=== PATIENT | female | born 1975 | race American Indian/Alaskan Native ===

== ENCOUNTER 2017-05-02 11:47 | Emergency (ER) | payer OTHER ==
[2017-05-02 12:33] LABS: Basophils % (Auto) 0.6 % (0.0-1.8); Hematocrit 38.9 % (30.3-42.9); Hemoglobin 12.1 gm/dl (10.1-14.3); Mean Corpuscular HGB Conc 31 % (30-34); Mean Corpuscular Volume 76 fl (79-97); Platelet Count 251 K/mm3 (140-440); Red Blood Count 5.13 M/mm3 (3.65-5.03); Red Cell Distribution Width 14.5 % (13.2-15.2)
[2017-05-02 13:03] LABS: Mean Corpuscular Hemoglobin 24 pg (28-32)
[2017-05-02 13:17] LABS: Anion Gap 18 mmol/L; BUN/Creatinine Ratio 15; Blood Urea Nitrogen 9 mg/dL (7-17); Calcium 8.6 mg/dL (8.4-10.2); Carbon Dioxide 24 mmol/L (22-30); Chloride 103.6 mmol/L (98-107); Glucose 96 mg/dL (65-100); Potassium 3.9 mmol/L (3.6-5.0); Sodium 142 mmol/L (137-145)
--- NOTE | 2017-05-02 16:42 | Emergency Department Report ---
HPI - General Chief Complaint: Extremity Injury, Lower Time Seen by Provider: 05/02/17 16:24 - HPI HPI: This is a 42-year-old female presents to the emergency department from home, sent in by her PCP for a lower extremity Doppler, after having left calf pain and some swelling for the past 2 days. She says she was walking and felt "2 pops." She has been taking some IbuProfen and Tylenol and the primary care physician gave her some type of medicated bandage. She also has a referral to follow up with an orthopedist. She denies any other past medical history. No recent travel or sick contacts at home. She is able to ambulate without any instability. ED Past Medical Hx - Past Medical History Previous Medical History?: No - Surgical History Past Surgical History?: Yes Additional Surgical History: Etopic - Social History Smoking Status: Never Smoker Substance Use Type: Alcohol ED Review of Systems ROS: Stated complaint: POSS DVT Other details as noted in HPI Comment: All other systems reviewed and negative Constitutional: denies: chills, fever Eyes: denies: eye pain, eye discharge, vision change ENT: denies: ear pain, throat pain Respiratory: denies: cough, shortness of breath, wheezing Cardiovascular: denies: chest pain, palpitations Gastrointestinal: denies: abdominal pain, nausea, diarrhea Genitourinary: denies: urgency, dysuria, discharge Musculoskeletal: myalgia. denies: back pain Skin: denies: rash, lesions Neurological: denies: headache, weakness, paresthesias Physical Exam - Physical Exam Vital Signs: Vital Signs 05/02/17 05/02/17 05/02/17 11:57 13:49 14:34 Temperature 98.5 F 98.8 F Pulse Rate 70 68 Respiratory 16 18 18 Rate Blood Pressure 131/81 Blood Pressure 136/77 [Right] O2 Sat by Pulse 100 100 Oximetry Physical Exam: GENERAL: The patient is well-developed well-nourished. HENT: Normocephalic. Atraumatic. Patient has moist mucous membranes. EYES: Extraocular motions are intact. Pupils equal reactive to light bilaterally. NECK: Supple. Trachea is midline. CHEST/LUNGS: Clear to auscultation. There is no respiratory distress noted. HEART/CARDIOVASCULAR: Regular. There is no tachycardia. There is no murmur. ABDOMEN: Abdomen is soft, nontender. Patient has normal bowel sounds. There is no abdominal distention. SKIN: Skin is warm and dry. There is no appreciable edema to the left calf when compared to the right. NEURO: The patient is awake, alert, and oriented. The patient is cooperative. The patient has no focal neurologic deficits. The patient has normal speech. MUSCULOSKELETAL: There is some tenderness to palpation to the left calf but no obvious deformity. There is no limitation range of motion. ED Course Vital Signs 05/02/17 05/02/17 05/02/17 11:57 13:49 14:34 Temperature 98.5 F 98.8 F Pulse Rate 70 68 Respiratory 16 18 18 Rate Blood Pressure 131/81 Blood Pressure 136/77 [Right] O2 Sat by Pulse 100 100 Oximetry ED Medical Decision Making - Lab Data Result diagrams: 05/02/17 Unknown 05/02/17 12:11 - Radiology Data Radiology results: report reviewed Left lower extremity venous Doppler was negative for DVT. - Medical Decision Making 42-year-old female presents with some left calf pain and she believes also some swelling. Sent in to rule out a DVT. Left lower extremity venous Doppler was negative for any DVT or any other acute process. It is possible that the patient had a muscle strain or muscle tear. However she is able to ambulate and is stable while doing so. She says that she already has a referral for an orthopedist but was given one by myself as well. She will return to the ER with any worsening of her symptoms or any acute distress. - Differential Diagnosis DVT, muscle sprain, muscle tear, venous stasis Critical Care Time: No Critical care attestation.: If time is entered above; I have spent that time in minutes in the direct care of this critically ill patient, excluding procedure time. ED Disposition Clinical Impression: Pain of left calf Disposition: DC-01 TO HOME OR SELFCARE Is pt being admited?: Yes Condition: Stable Instructions: Muscle Strain (ED), Arthralgia (ED) Additional Instructions: Please follow-up with your primary care physician and your orthopedist referral. Return to the emergency Department with any worsening of your symptoms or any acute distress. Just in case, I have given you a referral for a local orthopedist, Dr. Cross, to follow up regarding her left calf pain. Referrals: PRIMARY CAREMD [Primary Care Provider] - JAZMÍN ESCOBAR MD [Staff Physician] - 3-5 Days Time of Disposition: 16:42
[2017-05-02 17:09] VITALS: BP 150/80
--- NOTE | 2017-05-03 14:20 | Vascular Lab Report ---
Left Lower Extremity Venous Duplex Study: Reason for Exam: Pain of the left lower extremity. Comments on the Right: A limited duplex study was done of the proximal veins of the right lower extremity. All veins visualized are freely compressible without evidence of internal echogenicity. Flow is spontaneous and phasic throughout. No evidence of acute or chronic thrombus is seen in any of the vessels visualized. Comments on the Left: All veins visualized are freely compressible without evidence of internal echogenicity. Flow is spontaneous and phasic throughout. No evidence of acute or chronic thrombus is seen in any of the vessels visualized. Impression: No evidence of acute or chronic deep venous thrombosis in the left lower extremity.
== END 2017-05-02 17:08 | disposition home or self-care (01) ==
LOC: ED 11:47
DX: M79.662 Pain in left lower leg (principal)
CPT/HCPCS: 36415; 80048; 85025; 99284